=== PATIENT | female | born 1950 | race Caucasian/White ===

== ENCOUNTER → 2018-01-02 | Outpatient (CLI) | payer MEDICARE ==
[~2018-01-02] MED LIST: ALPR2TAB95 PO; CALCIUM; DULO30CA2 PO; ESCI20TA10 PO; FENTANYL PF 100 MCG/2ML ONE; FLUMAZENIL 0.1 MG/1 ML, 5ML ONE; HYDR-3307 PO; MIDAZOLAM 1 MG/ML, 5ML ONE; MVI; NALOXONE 1 MG/ML, 2ML ONE; PROBIOTICS; QUET50TA5 PO
== END | disposition home or self-care (01) ==
LOC: RAD 11:59
PROVIDERS: ATTEND Family Medicine
DX: M19.012 Primary osteoarthritis, left shoulder (principal)
CPT/HCPCS: 73221; 73721; J2250; J3010; J2310